=== PATIENT | male | born 1980 | race Caucasian/White ===

== ENCOUNTER 2019-08-30 11:06 | Emergency (ER) | payer OTHER, SELFPAY ==
--- NOTE | 2019-08-30 11:15 | ED_ITS ---
HPI - Chest Pain General Chief Complaint: Chest Pain Stated Complaint: right side ribs or mucle hurting Time Seen by Provider: 08/30/19 11:10 Source: patient Mode of arrival: Ambulatory Limitations: no limitations History of Present Illness HPI narrative: 38-year-old male nonsmoker with history of hypertension presents with a chief complaint of sharp and stabbing right-sided rib pain that is worse with a deep breath and range of motion. He noticed it a few days ago [place] and then attempted to play around of golf but was unable to complete. He denies any specific traumatic injury. He denies any shortness of breath, cough or hemoptysis. He has had no nausea, vomiting or diarrhea. He denies abdominal pain or any worsening with food or drink. He states he has been taking Naprosyn which helps significant MD complaint: chest pain Onset (ago): day(s) Duration: intermittent Onset: during exertion Pain location: right chest Severity: moderate Quality: sharp Pain radiation: none Relieving factors: rest Exacerbating factors: palpation and movement Treatments prior to arrival chest pain: none Related Data Home Medications Medication Instructions Recorded Confirmed lisinopril 20 mg PO DAILY 08/30/19 08/30/19 Previous Rx's Medication Instructions Recorded cyclobenzaprine 10 mg PO TID PRN #14 tab 08/30/19 ketorolac 10 mg PO Q6H PRN #14 tab 08/30/19 lidocaine [Lidoderm] 1 patch TOP DAILY #15 each 08/30/19 lisinopril 20 mg PO DAILY #30 tab 08/30/19 Allergies Allergy/AdvReac Type Severity Reaction Status Date / Time No Known Drug Allergies Allergy Verified 08/30/19 11:21 Review of Systems Constitutional Constitutional: Denies chills, Denies fatigue, Denies fever(s), Denies frequent falls, Denies lethargy and Denies weakness Eyes Eyes: Denies change in vision, Denies eye discharge, Denies irritation and Denies loss of vision ENT Ears, Nose, Mouth, and Throat: Denies change in voice, Denies dizziness, Denies neck pain, Denies sore throat and Denies throat swelling Cardiovascular Cardiovascular: Denies chest pain, Reports chest pain with activity, Denies irregular heart rhythm, Denies lightheadedness, Denies palpitations, Denies dyspnea, Denies dyspnea on exertion and Denies orthopnea Respiratory Respiratory: Denies cough, Denies dyspnea, Denies dyspnea on exertion and Denies wheezing Gastrointestinal Gastrointestinal: Denies abdominal pain, Denies change in bowel habits, Denies diarrhea, Denies nausea and Denies vomiting Genitourinary Genitourinary: Denies hematuria, Denies flank pain, Denies urinary incontinence and Denies urinary urgency Musculoskeletal Musculoskeletal: Denies back pain, Denies muscle weakness, Denies neck pain, Denies numbness and Denies tingling Integumentary/Breasts Skin/Breast: Denies pruritus, Denies erythema, Denies rash and Denies wounds Neurologic Neurologic: Denies behavioral changes, Denies confusion, Denies dizziness, Denies frequent falls, Denies loss of vision, Denies numbness, Denies tingling and Denies weakness Psychiatric Psychiatric: Denies anxiety, Denies behavioral changes, Denies confusion, Denies depression, Denies homicidal ideation and Denies suicidal ideation Endocrine Endocrine: Denies fatigue, Denies flushing and Denies palpitations Hematologic/Lymphatic Hematologic/Lymphatic: Denies easy bruising Allergic/Immunologic Allergic/Immunologic: Denies urticaria, Denies throat swelling and Denies wheezing Patient History Social History Smoking Status: Never smoker Smoking Status: Never smoker alcohol intake frequency: 0-2 drinks per day Exam Narrative Exam Narrative: GEN: AOx3 and in mild distress EYES: Pupils are equal, round, and reactive to light and accommodation. Extraoccular muscles are intact bilaterally. There is no subconjunctival hemorrhage or exudate. CHEST: Lungs are clear to auscultation bilaterally and free of wheezes, rales, or rhonchi. Heart rate is regular rhythm, there are no murmurs, clicks, rubs, or gallops. Minimal pinpoint chest wall tenderness to palpation of anterolateral mid ribs. No clicking, no subcu emphysema. ABD: Abdomen is soft and nontender. There is no guarding or rebound. Bowel sounds are normal in all 4 quadrants. There is no mass or organomegaly. EXT: Full painless ROM of all extremities with no loss of sensation or strength. SKIN: Warm, pink, and dry. No erythema or rash. Skin of chest exposed, no findings such as bruising or shingles Initial Vital Signs Initial Vital Signs: Vital Signs Temperature 98.3 F 08/30/19 11:16 Pulse Rate 64 08/30/19 11:16 Respiratory Rate 16 08/30/19 11:16 Blood Pressure 183/119 H 08/30/19 11:16 Pulse Oximetry 97 08/30/19 11:16 Course Orders Ordered: ED Orders 08/30/19 11:21 XR ribs RT min 3V w CXR1V Stat Vital Signs Vital signs: Vital Signs - 8 hr 08/30/19 11:16 Temperature 98.3 F Pulse Rate 64 Respiratory Rate 16 Blood Pressure 183/119 H Pulse Oximetry 97 MDM - Chest Pain Imaging Data Chest x-ray: Radiologist's Impression: [address] [address] XRay Report Signed Patient: Jose Alejandro OnofreMR#: [id number] : 1980Acct:[id number] Age/Sex: 38 / MDate of Service: 08/30/19 Loc: ED Accession Number: [id number] Procedure: XR ribs RT min 3V w CXR1V Ordering Provider: Shane Saenz D.O. PROCEDURE: XR RIBS RT MIN 3V W CXR 1V INDICATIONS: pain to R ribs TECHNIQUE: 2 views of the right ribs were acquired, along with a single view chest. COMPARISON: None. FINDINGS: Surgical changes and devices: None. Bones and chest wall: No displaced fractures or dislocations. No suspicious bony lesions. Overlying soft tissues appear unremarkable. Lungs and pleura: No pleural effusions or pneumothorax. Lungs appear clear. Mediastinum: Mediastinal contours appear normal. Heart size is normal. IMPRESSION: No evidence of displaced right rib fracture. No evidence acute pulmonary process. Dictated by: Salomon Schreiber M.D. on 08/30/2019 at 11:12 Approved by: Salomon Schreiber M.D. on 08/30/2019 at 11:15 Discharge Plan Departure Patient Disposition: Home Clinical Impression: Acute chest wall pain Discharge Date/Time: 08/30/19 12:59 Instructions: DI for Atypical Chest Pain Activity Restrictions/Additional Instructions: *You have been diagnosed with [chest wall pain] *What to do: *Take medications as directed: Prescriptions sent to [facility] *Follow up with your primary care provider in 2-3 days, call for an appointment. Let them know you were seen in the Emergency Department and that we ask that you be seen in follow up *Return to ER if you should have any new, worsening or concerning symptoms Prescriptions: New ketorolac 10 mg tablet 10 mg PO Q6H PRN (Reason: pain) Qty: 14 RF: 0 lidocaine [Lidoderm] 5 % adhesive patch,medicated 1 patch TOP DAILY Qty: 15 RF: 0 lisinopril 20 mg tablet 20 mg PO DAILY Qty: 30 RF: 0 cyclobenzaprine 10 mg tablet 10 mg PO TID PRN (Reason: muscle spasm) Qty: 14 RF: 0 No Action lisinopril 20 mg Tablet 20 mg PO DAILY RF: 0
[2019-08-30 11:16] VITALS: BP 183/119; PULSE 64; RESP 16; TEMP 36.8; O2SAT 97; BMI 33.9
--- NOTE | 2019-08-30 11:21 | DI.RAD.S_ITS ---
PROCEDURE: XR RIBS RT MIN 3V W CXR 1V INDICATIONS: pain to R ribs TECHNIQUE: 2 views of the right ribs were acquired, along with a single view chest. COMPARISON: None. FINDINGS: Surgical changes and devices: None. Bones and chest wall: No displaced fractures or dislocations. No suspicious bony lesions. Overlying soft tissues appear unremarkable. Lungs and pleura: No pleural effusions or pneumothorax. Lungs appear clear. Mediastinum: Mediastinal contours appear normal. Heart size is normal. IMPRESSION: No evidence of displaced right rib fracture. No evidence acute pulmonary process. Dictated by: Salomon Schreiber M.D. on 08/30/2019 at 11:12 Approved by: Salomon Schreiber M.D. on 08/30/2019 at 11:15
== END 2019-08-30 12:59 | disposition home or self-care (01) ==
PROVIDERS: Emergency Provider Emergency Medicine
DX: R07.89 Other chest pain (principal); I10 Essential (primary) hypertension; R07.81 Pleurodynia
CPT/HCPCS: 71101; 99281; 99283